=== PATIENT | female | born 1985 | race Caucasian/White ===

== ENCOUNTER 2016-11-08 14:55 | Emergency (ER) | payer OTHER ==
[~2016-11-08] VITALS: Wt 89.0 kg
[~2016-11-08 14:55] MED LIST: PREN-17 PO
[2016-11-08] MEDS ORDERED: ONDANSETRON 4 MG INJ IV STA (15:18)
[2016-11-08] MEDS ORDERED: SOD CHLORIDE 0.9% 1,000 ML IV ONE (15:30)
--- NOTE | 2016-11-08 15:37 | ERD ---
ER Documentation Chief Complaint Date/Time DATE: 11/08/16 TIME: 15:35 Chief Complaint VOMITING, BLOOD IN URINE, THROAT PAIN, SENT PER PMD FOR EVAL HPI This is a 31-year-old female presents to the ER for vomiting. Patient is currently 14 weeks and states she has been vomiting for the last 14 weeks. Vomiting is nonbilious nonbloody. She denies any diarrhea. Patient states that she is able to drink water however 20 minutes later she vomits water up. Patient denies any headaches she denies any abdominal pain. She denies any dizziness or weaknesses. Patient went to her primary care doctor today and was sent here for further evaluation. Patient denies any urinary frequency or dysuria. He denies any back pain. Patient denies any vaginal bleeding, pelvic pain, vaginal discharge. A0. Patient also complaining of bilateral ankle pain and swelling, this usually occurs at the end of the day. Patient denies any trauma to the area. Patient denies any calf redness swelling or pain. She denies any recent travel. She has not had any recent surgeries. She denies any chest pain or shortness of breath. ROS 12 point review of systems was done, all negative except per HPI. Medications Home Meds Active Scripts Ondansetron Hcl* (Zofran*) 4 Mg Tab, 4 MG PO Q4H Y for NAUSEA AND OR VOMITING, # 30 TAB Prov:TWILA HERNANDEZ 11/08/16 Reported Medications Vit-Iron Fumarate-FA (Prenatabs FA) 1 Tab Tablet, 1 TAB PO DAILY, TAB 09/18/15 Allergies Allergies: Coded Allergies: No Known Allergy (Unverified , 09/18/15) Physical Exam Vitals Vital Signs Date Time Temp Pulse Resp B/P Pulse Ox O2 Delivery O2 Flow Rate FiO2 11/08/16 14:59 99.4 97 17 128/72 98 Physical Exam GENERAL: The patient is well developed and appropriate for usual state of health , in no apparent distress. HEENT: Atraumatic. The oropharynx is clear with no erythema or exudates. CHEST: Clear to auscultation bilaterally. There are no rales, wheezes or rhonchi. HEART: Regular rate and rhythm. No murmurs, clicks, rubs or gallops. ABDOMEN: Soft, nontender and nondistended. Good bowel sounds. No rebound or guarding. No gross peritonitis. No gross organomegaly or masses. No Barragan sign or McBurney point tenderness. BACK: No midline or flank tenderness. NEURO: Alert and oriented. SKIN: The skin is warm and dry. Result Diagram: 11/08/16 1545 11/08/16 1545 Results 24 hrs Laboratory Tests Test 11/08/16 15:45 White Blood Count 8.410^3/ul Red Blood Count 3.8310^6/ul Hemoglobin 11.4g/dl Hematocrit 33.3% Mean Corpuscular Volume 86.9fl Mean Corpuscular Hemoglobin 29.8pg Mean Corpuscular Hemoglobin Concent 34.2g/dl Red Cell Distribution Width 14.0% Platelet Count 24811^3/UL Mean Platelet Volume 8.0fl Neutrophils % 72.4% Lymphocytes % 19.6% Monocytes % 6.4% Eosinophils % 0.8% Basophils % 0.4% Nucleated Red Blood Cells % 0.0/100WBC Neutrophils # 6.110^3/ul Lymphocytes # 1.710^3/ul Monocytes # 0.510^3/ul Eosinophils # 0.110^3/ul Basophils # 0.010^3/ul Nucleated Red Blood Cells # 0.010^3/ul Urine Color YELLOW Urine Clarity CLEAR Urine pH 7.0 Urine Specific [place] 1.013 Urine Ketones TRACEmg/dL Urine Nitrite NEGATIVEmg/dL Urine Bilirubin NEGATIVEmg/dL Urine Urobilinogen 2+mg/dL Urine Leukocyte Esterase NEGATIVELeu/ul Urine Hemoglobin NEGATIVEmg/dL Urine Glucose NEGATIVEmg/dL Urine Total Protein NEGATIVEmg/dl Sodium Level 138mmol/L Potassium Level 3.6mmol/L Chloride Level 97mmol/L Carbon Dioxide Level 24mmol/L Anion Gap 21 Blood Urea Nitrogen 4mg/dl Creatinine 0.59mg/dl Glucose Level 92mg/dl Calcium Level 9.7mg/dl Total Bilirubin 0.5mg/dl Direct Bilirubin 0.00mg/dl Indirect Bilirubin 0.5mg/dl Aspartate Amino Transf (AST/SGOT) 35IU/L Alanine Aminotransferase (ALT/SGPT) 89IU/L Alkaline Phosphatase 140IU/L Total Protein 7.0g/dl Albumin 4.3g/dl Globulin 2.70g/dl Albumin/Globulin Ratio 1.59 Current Medications Medications (Trade) Dose Ordered Sig/Kailee Route PRN Reason Start Time Stop Time Status Last Admin Dose Admin Sodium Chloride (NS) 1,000 ml @ 1,000 mls/hr Q1H ONCE IV 11/08/16 15:30 11/08/16 16:29 DC 11/08/16 16:06 Ondansetron HCl (Zofran Inj) 4 mg ONCE STAT IV 11/08/16 15:18 11/08/16 15:20 DC 11/08/16 16:06 Procedures/MDM This is a 31-year-old female presents to the ER with vomiting in . She has had vomiting throughout her entire . At this time suspicion for infectious etiology is low. Patient is afebrile and extremely well- appearing. I doubt urinary tract infection or pyelonephritis. Blood work was done and reviewed there was no evidence of leukocytosis, electrolyte abnormalities. There is a small amount of ketones in the urine which is expected with vomiting. Patient was given fluids in the ER and Zofran she does not have any episodes of vomiting in the ER. Ultrasound was done to check on the baby and there was no abnormalities with baby. Patient also denies any vaginal symptoms. In regards to patient's bilateral ankle pain and swelling this is likely due to the . Suspicion for DVT is low as there is no evidence of Redness swelling or pain. Patient will be sent home with Estefany. She is to follow-up with her primary care doctor within 1-2 days or return to ER sooner if symptoms worsen. My medical decision making was shared with the patient she understands and agrees with plan. Departure Diagnosis: Primary Impression: Hyperemesis Condition: Stable TWILA HERNANDEZ Nov 08, 2016 15:37
[2016-11-08 15:56] LABS: BASOPHILS % 0.4 % (0.0-2.0); EOSINOPHILS # 0.1 10^3/ul (0.0-0.5); EOSINOPHILS % 0.8 % (0.0-7.0); HEMATOCRIT 33.3 % (37.0-47.0); HEMOGLOBIN 11.4 g/dl (12.0-16.0); LYMPHOCYTES # 1.7 10^3/ul (0.8-2.9); LYMPHOCYTES % 19.6 % (15.0-51.0); MEAN CORPUSCULAR HEMOGLOBIN 29.8 pg (29.0-33.0); MEAN CORPUSCULAR HGB CONC 34.2 g/dl (32.0-37.0); MEAN CORPUSCULAR VOLUME 86.9 fl (82.0-101.0); MONOCYTE # 0.5 10^3/ul (0.3-0.9); MONOCYTES % 6.4 % (0.0-11.0); NEUTROPHIL # 6.1 10^3/ul (1.6-7.5); NEUTROPHILS % 72.4 % (39.0-77.0); PLATELET COUNT 288 10^3/UL (140-415); RED BLOOD COUNT 3.83 10^6/ul (4.20-5.40); WHITE BLOOD COUNT 8.4 10^3/ul (4.8-10.8)
[2016-11-08 15:57] LABS: ADD SCAN DIFF NO
[2016-11-08 16:03] LABS: ADD UMIC NO; UR ASCORBIC ACID NEGATIVE (NEGATIVE); UR BILIRUBIN (Dip) NEGATIVE (NEGATIVE); UR BLOOD (Dip) NEGATIVE (NEGATIVE); UR CLARITY CLEAR (CLEAR); UR COLOR YELLOW (YELLOW); UR GLUCOSE (Dip) NEGATIVE (NEGATIVE); UR KETONES (Dip) TRACE mg/dL (NEGATIVE); UR LEUKOCYTE ESTERASE (Dip) NEGATIVE Leu/ul (NEGATIVE); UR NITRITE (Dip) NEGATIVE (NEGATIVE); UR SPECIFIC GRAVITY (Dip) 1.013 (1.003-1.030); UR TOTAL PROTEIN (Dip) NEGATIVE (NEGATIVE); UR UROBILINOGEN (Dip) 2+ mg/dL (NEGATIVE)
[2016-11-08 16:16] LABS: ALBUMIN 4.3 g/dl (3.3-4.9); ALBUMIN/GLOBULIN RATIO 1.59; BILIRUBIN,INDIRECT 0.5 mg/dl (0-1.1); BILIRUBIN,TOTAL 0.5 mg/dl (0.2-1.3); CALCIUM 9.7 mg/dl (8.4-10.2); CREATININE 0.59 mg/dl (0.44-1.00); POTASSIUM 3.6 mmol/L (3.5-5.1)
--- NOTE | 2016-11-08 16:22 | RADRPT ---
PROCEDURE: Obstetrical ultrasound CLINICAL INDICATION: Abdominal pain TECHNIQUE: Multiple sonographic images of the pelvis were obtained. The images were reviewed on a PACS workstation. COMPARISON: None LMP: 07/24/2016 FINDINGS: The cervix is not well visualized. There is a single viable intrauterine gestation. Cardiac activity is present with 161 beats per minute. There is a vertex presentation. The placenta is anterior. There is no evidence for an abruption or placenta previa. There is a normal amount of amniotic fluid with in maximum vertical pocket of 3.6 cm. Measurements were made in order to determine age. The results are as follows (cm): BPD =3.03 HC =10.61 AC =8.84 FL =1.69 Estimated gestational age by ultrasound of approximately 15 weeks, 1 day. The estimated date of delivery by ultrasound is 05/01/2017. Estimated gestational age by LMP of approximately 15 weeks, 2 days. The estimated date of delivery by LMP is 04/30/2017. EFW = 114 grams (24th percentile) IMPRESSION: Single viable intrauterine gestation of approximately 15 weeks, 1 day . The estimated date of delivery is 05/01/2017 . Dating by ultrasound is within 1 day of dating by LMP. Normal amount of amniotic fluid. Anterior placenta without evidence of an abruption. Estimated weight is in the 24th percentile. RPTAT: EE Physician Cyndie Date Time Electronically viewed and signed by Physician Cyndie on 11/08/2016 16:21 /
[2016-11-08] MEDS ORDERED: ONDA-43 PO (16:31)
[2016-11-08 17:27] VITALS: BP 128/69; PULSE 77; RESP 18
== END 2016-11-08 17:28 | disposition home or self-care (01) ==
LOC: FTE 14:55
DX: O21.0 Mild hyperemesis gravidarum (principal); Z3A.15 15 weeks gestation of pregnancy
CPT/HCPCS: 36415; 76801; 80053; 81003; 85025; 96374; J2405; J7030; Z7502

== ENCOUNTER 2017-08-08 08:23 | Day surgery (SDC) | END 2017-08-08 15:50 | disposition home or self-care (01) ==